=== PATIENT | male | born 1985 | race Caucasian/White ===

== ENCOUNTER 2020-06-15 06:57 | Emergency (ER) | payer OTHER ==
[~2020-06-15] VITALS: Ht 182.9 cm; Wt 102.1 kg
[2020-06-15 07:27] VITALS: Ht 182.9 cm; Wt 102.1 kg
[2020-06-15 09:58] VITALS: BP 140/83
== END 2020-06-15 09:58 | disposition home or self-care (01) ==
LOC: ED 06:57
DX: S92.331A Displaced fracture of third metatarsal bone, right foot, initial encounter for closed fracture (principal); S92.341A Displaced fracture of fourth metatarsal bone, right foot, initial encounter for closed fracture; S51.012A Laceration without foreign body of left elbow, initial encounter; V09.9XXA Pedestrian injured in unspecified transport accident, initial encounter; Y93.89 Activity, other specified; Y92.89 Other specified places as the place of occurrence of the external cause; Y99.8 Other external cause status
CPT/HCPCS: J1885; J2001